=== PATIENT | male | born 1990 | race Caucasian/White ===

== ENCOUNTER 2024-12-01 07:55 | Emergency (ER) | payer OTHER, MEDICAID ==
[~2024-12-01] VITALS: Ht 175.3 cm; Wt 70.0 kg
[2024-12-01 07:57] VITALS: O2SAT 98
[2024-12-01] MEDS ORDERED: BO1 TP (09:13)
[2024-12-01 09:34] VITALS: BP 148/98; PULSE 108; RESP 18; TEMP 36.8; O2SAT 99
== END 2024-12-01 09:39 | disposition home or self-care (01) ==
LOC: ER 07:55
DX: S80.211A Abrasion, right knee, initial encounter (principal); S80.212A Abrasion, left knee, initial encounter; S00.81XA Abrasion of other part of head, initial encounter; S00.83XA Contusion of other part of head, initial encounter; F15.90 Other stimulant use, unspecified, uncomplicated; Y08.89XA Assault by other specified means, initial encounter; Y93.89 Activity, other specified; Y92.89 Other specified places as the place of occurrence of the external cause; Y99.8 Other external cause status
CPT/HCPCS: 73560; 99284